=== PATIENT | male | born 1965 ===

== ENCOUNTER 2016-04-09 20:01 | Emergency (ER) | payer BC, OTHER ==
[2016-04-09 20:57] VITALS: BP 110/64
[2016-04-09] MEDS ORDERED: Tetan/Diph/Pertus SYR(Tdap)* 0.5 ML SYR(BOOSTRIX) use SYR IM ONE (21:12)
[2016-04-09] MEDS ORDERED: Ibuprofen TAB* 600 MG PO ONE (21:24)
--- NOTE | 2016-04-09 21:45 | RAD ---
Indication: Puncture wound to bottom of LEFT foot with a nail. Entry site between the fourth and fifth metatarsal heads. Comparison: None. Technique: AP and lateral views LEFT foot. Report: Negative for a conspicuous foreign body, subcutaneous emphysema, fracture, or malalignment. Soft tissue swelling along the plantar aspect of the foot. Suggestion of chronic appearing loose bodies at the anterior recess of the talocrural joint with dominant 0.9 cm ossific fragment. IMPRESSION: No conspicuous foreign body or fracture evident.
[2016-04-09] MEDS ORDERED: Levofloxacin TAB* 500 MG PO ONE (22:02)
--- NOTE | 2016-04-09 22:26 | UC ---
Lower Extremity/Ankle HPI - HPI Summary HPI Summary: pw from a nail through bedroom slipped in crease of left 5th toe earlier today - History of Current Complaint Chief Complaint: UCLowerExtremity Stated Complaint: PUNCTURE WOUND FOOT Time Seen by Provider: 04/09/16 21:03 Hx Obtained From: Patient Onset/Duration: Sudden Onset, Resolved Severity Initially: Moderate Severity Currently: Mild Pain Intensity: 0 Pain Scale Used: 0-10 Numeric Aggravating Factor(s): Nothing Alleviating Factor(s): Nothing Able to Bear Weight: Yes - Allergies/Home Medications Allergies/Adverse Reactions: Allergies Allergy/AdvReac Type Severity Reaction Status Date / Time Eggs or Egg-derived Products Allergy Hives Verified 04/09/16 20:50 PMH/Surg Hx/FS Hx/Imm Hx Previously Healthy: No Endocrine History Of: Denies: Diabetes, Thyroid Disease Cardiovascular History Of: Denies: Cardiac Disorders, Hypertension Respiratory History Of: Reports: Asthma - As child Denies: COPD GI/ History Of: Denies: Ulcer Neurological History Of: Reports: Migraine - OTC MEDICATION WHEN NEEDED - Surgical History Surgical History: Yes Surgery Procedure, Year, and Place: 2013 Hernia repair - Family History Known Family History: Positive: None Family History: denies cardiovascular issues in family lineage - Social History Occupation: Employed Full-time Lives: With Family Alcohol Use: None Substance Use Type: None Smoking Status (MU): Current Every Day Smoker Amount Used/How Often: 1/2 ppd Have You Smoked in the Last Year: Yes Cessation Counseling: Patient Advised to Stop - Immunization History Most Recent Influenza Vaccination: None Most Recent Tetanus Shot: Unknown Review of Systems Constitutional: Negative Skin: Other - pw to bottom of left foot Eyes: Negative ENT: Negative Respiratory: Negative Cardiovascular: Negative Gastrointestinal: Negative Genitourinary: Negative Motor: Negative Neurovascular: Negative Musculoskeletal: Negative Neurological: Negative Psychological: Negative All Other Systems Reviewed And Are Negative: Yes Physical Exam Triage Information Reviewed: Yes Appearance: Well-Appearing, No Pain Distress, Well-Nourished Vital Signs: Initial Vital Signs Temp 98.9 F 04/09/16 20:52 Pulse 79 04/09/16 20:52 Resp 18 04/09/16 20:52 BP 110/64 04/09/16 20:52 Pulse Ox 99 04/09/16 20:52 Vital Signs Reviewed: Yes Eye Exam: Normal Eyes: Positive: Conjunctiva Clear ENT Exam: Normal ENT: Positive: Normal ENT inspection, Hearing grossly normal. Negative: Nasal congestion, Nasal drainage, Trismus, Muffled/hoarse voice Neck exam: Normal Neck: Positive: Supple, Nontender Respiratory Exam: Normal Respiratory: Positive: Chest non-tender, No respiratory distress, No accessory muscle use Cardiovascular Exam: Normal Cardiovascular: Positive: RRR, Pulses Normal, Brisk Capillary Refill Musculoskeletal Exam: Normal Musculoskeletal: Positive: Strength Intact, ROM Intact, No Edema Neurological Exam: Normal Neurological: Positive: Alert, Muscle Tone Normal Psychological Exam: Normal Psychological: Positive: Normal Response To Family Skin: Positive: Other - to bottom of left foot Diagnostics - Laboratory Diagnostic Studies Completed/Ordered: no evidence of fb or fracture left foot Lower Extremity Course/Dx - Course Course Of Treatment: up date tetnus, levoquin , warm soaks, dressing, follow with pcp/podiatry - Differential Dx/Diagnosis Differential Diagnosis/HQI/PQRI: Cellulitis, Contusion, Fracture (Open), Osteomyelitis Provider Diagnoses: PW to left foot, update tetnus Discharge - Discharge Plan Condition: Stable Disposition: HOME Prescriptions: Levofloxacin TAB* [Levaquin TAB*] 500 mg PO DAILY #6 tab Patient Education Materials: Diphtheria/Acellular Pertussis/Tetanus Booster Vaccine (Tdap) (Injection), Puncture Wound (ED), Acute Wound Care (ED), Heat Pack Application (ED) Referrals: [facility] [Outside] - If Needed No Primary Care Phys,NOPCP [Primary Care Provider] - Garcia Rosas DPM [Doctor of Podiatric Medicine] - 1 Week
== END 2016-04-09 22:05 | disposition home or self-care (01) ==
LOC: UCEAST 20:01
DX: S91.332A Puncture wound without foreign body, left foot, initial encounter (principal); W45.0XXA Nail entering through skin, initial encounter; Y93.9 Activity, unspecified; Y92.9 Unspecified place or not applicable; Z23 Encounter for immunization; F17.210 Nicotine dependence, cigarettes, uncomplicated
CPT/HCPCS: 90471; 90715; 99202; A9270-GY; G0463

== ENCOUNTER 2016-07-01 08:19 | Emergency (ER) | payer OTHER ==
[2016-07-01 08:27] VITALS: BP 135/68
--- NOTE | 2016-07-01 14:07 | UC ---
Raymond Ramírez Claudia, scribed for Cathleen Ochoa MD on 07/01/16 at 0924 . Dental HPI - HPI Summary HPI Summary: 50 year old male presents to the [facility] with constant right upper dental pain. Pt states that he has an appt with his Dentist next week. He notes that the pain began about 1 month ago and has been constant since. Pt notes that the pain has worsened over the past two days and today he woke up with facial swelling. The pt reports a fever yesterday that resolved after the pt slept for a while. Pt denies any other associated Sx as well as any aggravating or associated Sx. - History of Current Complaint Chief Complaint: UCDentalProblem Stated Complaint: DENTAL PAIN Hx Obtained From: Patient Onset/Duration: Sudden Onset - Allergies/Home Medications Allergies/Adverse Reactions: Allergies Allergy/AdvReac Type Severity Reaction Status Date / Time Eggs or Egg-derived Products Allergy Hives Verified 07/01/16 08:27 PMH/Surg Hx/FS Hx/Imm Hx Previously Healthy: Yes Endocrine History Of: Denies: Diabetes, Thyroid Disease Cardiovascular History Of: Denies: Cardiac Disorders, Hypertension Respiratory History Of: Reports: Asthma - As child Denies: COPD GI/ History Of: Denies: Ulcer Neurological History Of: Reports: Migraine - OTC MEDICATION WHEN NEEDED - Surgical History Surgical History: Yes Surgery Procedure, Year, and Place: 2014 Hernia repair - Family History Known Family History: Positive: None Negative: Cardiac Disease Family History: denies cardiovascular issues in family lineage - Social History Occupation: Employed Full-time Lives: With Family Alcohol Use: None Substance Use Type: None Smoking Status (MU): Current Every Day Smoker Amount Used/How Often: 1/2 ppd Have You Smoked in the Last Year: Yes - Immunization History Most Recent Influenza Vaccination: None Most Recent Tetanus Shot: Unknown Review of Systems Constitutional: Fever - fever reported per Skin: Negative Eyes: Negative ENT: Dental Pain - right upper dental pain Respiratory: Negative Cardiovascular: Negative Gastrointestinal: Negative Genitourinary: Negative Motor: Negative Neurovascular: Negative Musculoskeletal: Negative Neurological: Negative Psychological: Negative All Other Systems Reviewed And Are Negative: Yes Physical Exam Triage Information Reviewed: Yes Vital Signs: Initial Vital Signs Temp 97.8 F 07/01/16 08:24 Pulse 78 07/01/16 08:24 Resp 16 07/01/16 08:24 BP 135/68 07/01/16 08:24 Pulse Ox 98 07/01/16 08:24 - Additional Comments * Appearance: Well-Nourished * Eye Exam: Normal * ENT Exam: tooth 5 was deeply tender with mild gum swelling poor dentition throughout, positive gingivitis, TMs clear, supple, no adenopathy * Respiratory Exam: Normal, no dyspnea, no tachypnea, normal respiratory rate. wheezing * Chest non-tender, Lungs clear, Normal breath sounds, No respiratory distress, No accessory muscle use * Cardiovascular Exam: Normal * Cardiovascular: Heart rate regular, good general skin color, good capillary refill * RRR, No Murmur, Pulses Normal - sitting up. heart rate correlates w left radial pulse (if relevant), Brisk Capillary Refill * Abdominal Exam: Normal * Abdomen Description: Nontender, No Organomegaly, Soft * Bowel Sounds: Present * Musculoskeletal Exam: Normal * Musculoskeletal: Strength Intact * Neurological Exam: Normal: nonfocal, grossly intact * Psychological Exam: Normal: conversing easily and appropriately * Skin Exam: Normal: no visible or reported rash Dental Complaint Course/Dx - Course Course Of Treatment: No new problems in CCC. F/u [facility] next week. Rx - augmentin, d/w pt. Rx -albuterol. Rx - ibuprofen. Questions answered to the best of my ability. - Differential Dx/Diagnosis Provider Diagnoses: Odontalgia with dental infection. Wheezing (d/w pt) Discharge - Discharge Plan Condition: Stable Disposition: HOME Prescriptions: Albuterol HFA INHALER* [Ventolin HFA Inhaler*] 1 - 2 puff INH Q6H PRN #1 mdi PRN Reason: Wheezing Amoxicillin/Clavulanate TAB* [Augmentin TAB 875*] 875 mg PO BID #20 tab Ibuprofen 600 MG #6 TAB PREPAK 600 mg PO Q6H PRN #30 tab PRN Reason: Pain Patient Education Materials: Dental Abscess (ED), Toothache (ED) Forms: *Work Release Referrals: Estefani Purvis [Primary Care Provider] - Additional Instructions: Please follow-up with your dentist as scheduled next week. Seek medical attention for any worsening Symptoms. Please refrain from smoking. Use ibuprofen as needed for the pain. Drink lots of water and eat probiotics and or yogurt while taking the antibiotics. The documentation as recorded by the scribe, Torzilli,Terra accurately reflects the service I personally performed and the decisions made by me, Cathleen Ochoa MD.
== END 2016-07-01 10:01 | disposition home or self-care (01) ==
LOC: UCEAST 08:19
DX: K04.7 Periapical abscess without sinus (principal); K08.89 Other specified disorders of teeth and supporting structures; R06.2 Wheezing; F17.210 Nicotine dependence, cigarettes, uncomplicated
CPT/HCPCS: 99212; G0463

== ENCOUNTER 2016-08-09 10:13 | Emergency (ER) | payer OTHER ==
[2016-08-09 10:21] VITALS: BP 111/69
--- NOTE | 2016-08-09 10:28 | UC ---
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 - History of Current Complaint Chief Complaint: UCRash Stated Complaint: RASH Time Seen by Provider: 08/09/16 10:21 Hx Obtained From: Patient - Allergy/Home Medications Allergies/Adverse Reactions: Allergies Allergy/AdvReac Type Severity Reaction Status Date / Time Eggs or Egg-derived Products Allergy Hives Verified 08/09/16 10:21 PMH/Surg Hx/FS Hx/Imm Hx Previously Healthy: Yes - fungal infection - Surgical History Surgical History: Yes Surgery Procedure, Year, and Place: 2013 Hernia repair - Family History Known Family History: Positive: None Negative: Cardiac Disease, Hypertension, Diabetes Family History: denies cardiovascular issues in family lineage - Social History Occupation: Employed Full-time Lives: With Family Alcohol Use: None Substance Use Type: None Smoking Status (MU): Current Every Day Smoker Amount Used/How Often: 1/2 ppd Have You Smoked in the Last Year: Yes Cessation Counseling: Patient Advised to Stop - Immunization History Most Recent Influenza Vaccination: None Most Recent Tetanus Shot: Unknown Review of Systems Constitutional: Negative Skin: Rash Eyes: Negative ENT: Negative Respiratory: Negative Cardiovascular: Negative Gastrointestinal: Negative Genitourinary: Negative Motor: Negative Neurovascular: Negative Musculoskeletal: Negative Neurological: Negative Psychological: Negative All Other Systems Reviewed And Are Negative: Yes Physical Exam Triage Information Reviewed: Yes Appearance: No Pain Distress, Well-Nourished Vital Signs: Initial Vital Signs Temp 97.1 F 08/09/16 10:15 Pulse 92 08/09/16 10:15 Resp 20 08/09/16 10:15 BP 111/69 08/09/16 10:15 Pulse Ox 100 08/09/16 10:15 Vital Signs Reviewed: Yes Eyes: Positive: Conjunctiva Clear ENT: Positive: Pharynx normal, TMs normal Dental Exam: Normal Neck: Positive: Supple, No Lymphadenopathy Respiratory: Positive: Lungs clear, Normal breath sounds, No respiratory distress, No accessory muscle use Cardiovascular: Positive: RRR, No Murmur, Pulses Normal Abdomen Description: Positive: Nontender, Soft Bowel Sounds: Positive: Present Musculoskeletal: Positive: No Edema Neurological: Positive: Alert Psychological Exam: Normal Skin: Positive: rashes - raised red areas approx 1cm across entire trunk arms and legs- no rash on hands feet and in mouth Course/Dx - Course Course Of Treatment: exam completed. rash appears to be drug exanthum. pt afebrile, no s/s of illness, no involvement with mouth hands feet. will start on prednisone and if no improvement followup with dermatology or PCP - Differential Dx - Multi-Symptom Provider Diagnoses: drug exanthum Discharge - Discharge Plan Condition: Stable Disposition: HOME Prescriptions: predniSONE TAB* [Deltasone TAB*] 50 mg PO DAILY #5 tab Patient Education Materials: Acute Rash (ED) Referrals: Estefani Purvis [Primary Care Provider] - Haylee Beltran [Medical Doctor] - Additional Instructions: Please start prednisone as directed continue using hydrocortisone as directed Increase fluids and rest Take acetaminophen or ibuprofen for fever or pain Please review your discharge instructions. If your symptoms do not improve please call your primary care provider or return to urgent care
== END 2016-08-09 10:51 | disposition home or self-care (01) ==
LOC: UCEAST 10:13
DX: L27.0 Generalized skin eruption due to drugs and medicaments taken internally (principal)
CPT/HCPCS: 99212; G0463

== ENCOUNTER 2017-04-14 10:16 | Emergency (ER) | payer OTHER ==
[2017-04-14 10:52] VITALS: BP 111/70
--- NOTE | 2017-04-14 11:36 | UC ---
Dental HPI - HPI Summary HPI Summary: PT HAS HAD INTERMITTENT PAIN RIGHT UPPER TEETH FOR SEVERAL WEEKS. HAD A DENTAL APPT THAT WAS CANCELED BY THE OFFICE AND RESCHEDULED FOR 05/07/17. YESTERDAY PAIN BECAME WORSE AND TODAY NOTICED DISTINCT RIGHT FACIAL SWELLING AND INCREASED PAIN. NO FEVER. - History of Current Complaint Chief Complaint: UCDentalProblem Stated Complaint: DENTAL PAIN, SWELLING Time Seen by Provider: 04/14/17 11:14 Hx Obtained From: Patient, Family/Administrative And Program Specialist - Onset/Duration: Gradual Onset, Lasting Days, Still Present Severity: Moderate Pain Intensity: 6 Pain Scale Used: 0-10 Numeric Aggravating Factor(s): Heat, Cold, Chewing Alleviating Factor(s): Nothing Related History: Swelling - Allergies/Home Medications Allergies/Adverse Reactions: Allergies Allergy/AdvReac Type Severity Reaction Status Date / Time egg Allergy Hives Verified 04/14/17 10:53 Egg Derived Allergy Hives Verified 04/14/17 10:53 Home Medications: Home Medications Naproxen Sodium [Aleve] 220 mg PO BID PRN 04/14/17 [History Confirmed 04/14/17] PMH/Surg Hx/FS Hx/Imm Hx Previously Healthy: Yes - Surgical History Surgical History: Yes Surgery Procedure, Year, and Place: 2013 Hernia repair - Family History Known Family History: Positive: None Negative: Cardiac Disease, Hypertension, Diabetes Family History: denies cardiovascular issues in family lineage - Social History Alcohol Use: None Substance Use Type: Marijuana Smoking Status (MU): Light Every Day Tobacco Smoker Amount Used/How Often: 1/2 ppd Have You Smoked in the Last Year: Yes - Immunization History Most Recent Influenza Vaccination: None Most Recent Tetanus Shot: Unknown Review of Systems Constitutional: Negative ENT: Dental Pain Respiratory: Negative Cardiovascular: Negative Gastrointestinal: Negative All Other Systems Reviewed And Are Negative: Yes Physical Exam Triage Information Reviewed: Yes Appearance: Well-Nourished, Pain Distress - MODERATE Vital Signs: Initial Vital Signs Temp 99.0 F 04/14/17 10:48 Pulse 73 04/14/17 10:48 Resp 16 04/14/17 10:48 BP 111/70 04/14/17 10:48 Pulse Ox 98 04/14/17 10:48 Vital Signs Reviewed: Yes Eyes: Positive: Conjunctiva Clear ENT: Positive: Hearing grossly normal, Pharynx normal, TMs normal Dental: Positive: Percussion Tenderness @ - RIGHT UPPER TEETH, Gross Decay/ Caries @ - DIFFUSELY, Abscess @ - RIGHT UPPER. Negative: Cervical Lymphadenopathy Neck: Positive: Supple, Nontender, No Lymphadenopathy Respiratory: Positive: No respiratory distress, No accessory muscle use Cardiovascular: Positive: Pulses Normal Abdomen Description: Positive: Soft Musculoskeletal: Positive: No Edema Neurological: Positive: Alert Psychological: Positive: Age Appropriate Behavior Skin: Negative: rashes Dental Complaint Course/Dx - Differential Dx/Diagnosis Provider Diagnoses: RIGHT UPPER DENTAL ABSCESS Discharge - Discharge Plan Condition: Stable Disposition: HOME Prescriptions: Amoxicillin/Clavulanate TAB* [Augmentin TAB 875*] 875 mg PO BID #20 tab Chlorhexidine MW 0.12% 473ML* [Peridex Mouth Wash 0.12%*] 15 ml SWISH SPIT BID # 1 bottle HYDROcodone/ACETAMIN 5-325 MG* [P[facility] 5-325 TAB*] 1 tab PO Q6H PRN #20 tab MDD 4 PRN Reason: Pain Patient Education Materials: Dental Abscess (ED) Referrals: Estefani Purvis [Primary Care Provider] - If Needed Additional Instructions: TAKE THE ANTIBIOTIC FOR THE FULL 10 DAYS. ANTISEPTIC MOUTH RINSE TWICE DAILY. RINSE MOUTH WITH WATER AFTER EATING. USE OTC NAPROXEN 2 TABS TWICE DAILY NEEDED FOR PAIN. HYDROCODONE/APAP FOR BREAKTHROUGH PAIN. KEEP YOUR DENTAL APPT ON 05/07/17 OR RESCHEDULE FOR EARLIER IF ABLE.
== END 2017-04-14 11:34 | disposition home or self-care (01) ==
LOC: UCEAST 10:16
DX: K04.7 Periapical abscess without sinus (principal); F17.210 Nicotine dependence, cigarettes, uncomplicated
CPT/HCPCS: 99212; G0463

== ENCOUNTER 2017-12-13 10:37 | Emergency (ER) | payer OTHER ==
[2017-12-13 12:02] VITALS: BP 124/69
--- NOTE | 2017-12-13 12:19 | UC ---
Throat Pain/Nasal Sathya HPI - HPI Summary HPI Summary: sore throat and right ear pain for a few days no fevers patient is concerned he may have strep throat--his children are sick with URI SX - History of Current Complaint Chief Complaint: UCGeneralIllness Stated Complaint: SORE THROAT Time Seen by Provider: 12/13/17 12:08 Hx Obtained From: Patient Onset/Duration: Gradual Onset, Lasting Days - 4 Pain Intensity: 9 Pain Scale Used: 0-10 Numeric Cough: None - Allergies/Home Medications Allergies/Adverse Reactions: Allergies Allergy/AdvReac Type Severity Reaction Status Date / Time bee venom protein (honey bee) Allergy Intermediate Hives Verified 12/13/17 12:02 egg Allergy Hives Verified 12/13/17 12:01 Egg Derived Allergy Hives Verified 12/13/17 12:01 Home Medications: Home Medications NK [No Home Medications Reported] 12/13/17 [History Confirmed 12/13/17] PMH/Surg Hx/FS Hx/Imm Hx Previously Healthy: Yes - Surgical History Surgical History: Yes Surgery Procedure, Year, and Place: 2013 Hernia repair - Family History Known Family History: Positive: None Negative: Cardiac Disease, Hypertension, Diabetes Family History: denies cardiovascular issues in family lineage - Social History Occupation: Works From/At Home Lives: With Family Alcohol Use: Rare Substance Use Type: Marijuana Smoking Status (MU): Light Every Day Tobacco Smoker Type: Cigarettes Amount Used/How Often: 1/2 ppd Have You Smoked in the Last Year: Yes - Immunization History Most Recent Influenza Vaccination: None Most Recent Tetanus Shot: Unknown Review of Systems Constitutional: Negative Skin: Negative Eyes: Negative ENT: Sore Throat, Ear Ache - right Respiratory: Negative Cardiovascular: Negative Gastrointestinal: Negative Genitourinary: Negative Motor: Negative Neurovascular: Negative Musculoskeletal: Negative Neurological: Negative Psychological: Negative Is Patient Immunocompromised?: No All Other Systems Reviewed And Are Negative: Yes Physical Exam Triage Information Reviewed: Yes Appearance: Well-Appearing, No Pain Distress, Well-Nourished Vital Signs: Initial Vital Signs Temp 98.6 F 12/13/17 11:56 Pulse 75 12/13/17 11:56 Resp 18 12/13/17 11:56 BP 124/69 12/13/17 11:56 Pulse Ox 99 12/13/17 11:56 Vital Signs Reviewed: Yes Eye Exam: Normal Eyes: Positive: Conjunctiva Clear ENT Exam: Normal ENT: Positive: Normal ENT inspection, Hearing grossly normal, Pharynx normal, TMs normal, Uvula midline. Negative: Nasal congestion, Tonsillar swelling, Tonsillar exudate, Trismus, Muffled voice, Hoarse voice, Dental tenderness, Sinus tenderness Dental Exam: Normal Neck exam: Normal Neck: Positive: Supple, Nontender, No Lymphadenopathy Respiratory Exam: Normal Respiratory: Positive: Chest non-tender, Lungs clear, Normal breath sounds, No respiratory distress, No accessory muscle use Cardiovascular Exam: Normal Cardiovascular: Positive: RRR, No Murmur, Pulses Normal, Brisk Capillary Refill Musculoskeletal Exam: Normal Musculoskeletal: Positive: Strength Intact, ROM Intact, No Edema Neurological Exam: Normal Neurological: Positive: Alert, Muscle Tone Normal Psychological Exam: Normal Skin Exam: Normal Diagnostics - Laboratory Diagnostic Studies Completed/Ordered: RST (-) Throat Pain/Nasal Course/Dx - Course Assessment/Plan: increase fluids, rest tylenol, ibuprofen, mucinex and sudafed follow with pcp prn - Differential Dx/Diagnosis Provider Diagnoses: right eustation tube dysfunction Discharge - Sign-Out/Discharge Documenting (check all that apply): Patient Departure All imaging exams completed and their final reports reviewed: No Studies - Discharge Plan Condition: Stable Disposition: HOME Patient Education Materials: Decongestant/Expectorant (By mouth), Earache (ED) Referrals: Estefani Purvis [Primary Care Provider] - If Needed - Billing Disposition and Condition Condition: STABLE Disposition: Home
== END 2017-12-13 12:40 | disposition home or self-care (01) ==
LOC: UCEAST 10:37
DX: H69.91 Unspecified Eustachian tube disorder, right ear (principal); Z91.030 Bee allergy status; Z91.012 Allergy to eggs; F17.210 Nicotine dependence, cigarettes, uncomplicated
CPT/HCPCS: 87651; 99211; G0463